=== PATIENT | female | born 1970 | race Caucasian/White ===

== ENCOUNTER 2019-09-28 19:52 | Emergency (ER) | payer OTHER ==
[~2019-09-28] VITALS: Ht 167.6 cm; Wt 70.3 kg
--- NOTE | 2019-09-28 20:20 | NUR ---
ANDREW YOUNGER at bedside for MSE
--- NOTE | 2019-09-28 20:25 | NUR ---
Patient laceration dressed with none adherent dressing at this time
[2019-09-28] MEDS ORDERED: TDAP DIPH,PERTUSS,TET VAC/PF 0.5 ML DISP.SYRIN IM ONE (20:31)
[2019-09-28] MEDS: TDAP DIPH,PERTUSS,TET VAC/PF 0.5 ML DISP.SYRIN IM ONE (20:37)
[2019-09-28 20:43] VITALS: BP 115/71
--- NOTE | 2019-09-28 20:46 | NUR ---
Patient discharged to home in stable condition. dressing intact. Written and verbal after care instructions given. no signs of acute distress.Patient verbalizes understanding of instructions. Stressed follow up or return to ER for worsening s/s.
== END 2019-09-28 20:35 | disposition home or self-care (01) ==
LOC: ER 19:54
DX: S61.215A Laceration without foreign body of left ring finger without damage to nail, initial encounter (principal); S61.217A Laceration without foreign body of left little finger without damage to nail, initial encounter; W27.4XXA Contact with kitchen utensil, initial encounter; Y93.G1 Activity, food preparation and clean up; Y92.89 Other specified places as the place of occurrence of the external cause
CPT/HCPCS: 90715; A4663